=== PATIENT | female | born 1970 | race African-American/Black ===

== ENCOUNTER 2016-06-22 16:37 | Emergency (ER) | payer BC ==
[2016-06-22 16:47] VITALS: O2SAT 96
[2016-06-22 17:38] LABS: % IMMATURE GRANULYOCYTES 0.2 % (0.0-1.1); ABSOLUTE IMMATURE GRANULOCYTES 0.02 10^3/uL (0.00-0.10); ADD DIFF? NO; ADD MORPH? NO; ADD SCAN? NO; ATYPICAL LYMPHOCYTE FLAG 10 (0-99); FRAGMENT RBC FLAG 0 (0-99); HEMATOCRIT 38.6 % (38.0-47.0); HEMOGLOBIN 13.7 g/dL (12.6-16.3); LEFT SHIFT FLG 0 (0-99); LIPEMIA HEMOLYSIS FLAG 90 (0-99); MEAN CELL HEMOGLOBIN 32.7 pg (27.9-34.1); MEAN CELL HEMOGLOBIN CONCENTR. 35.5 g/dL (32.4-36.7); MEAN CELL VOLUME 92.1 fL (81.5-99.8); MEAN PLATELET VOLUME 9.7 fL (8.7-11.7); PLATELET CLUMPS FLAG 20 (0-99); PLATELET COUNT 279 10^3/uL (150-400); RED BLOOD CELL COUNT 4.19 10^6/uL (4.18-5.33); RED CELL DISTRIBUTION WIDTH 12.9 % (11.5-15.2)
--- NOTE | 2016-06-22 17:43 | EDPHY ---
H & P Time Seen by Provider: 06/22/16 17:15 HPI/ROS: HPI: 45-year-old female presents to emergency department with chief concern vaginal bleeding. Reports a gush of bright red blood with tissue 45 minutes prior to arrival. She is 9 weeks after I VF. Had a normal ultrasound 2 weeks ago. Denies fever, chills, dizziness, shortness of breath, chest pain, abdominal pain, cramping, nausea, vomiting, urinary symptoms, back or flank pain. No recent infections. No history of STI. Under the care of a Dr. Lincoln who is an IVF specialist in [place]. Has first appointment with [facility] [place] at [facility] on Thursday of this week. 3 para 0. ROS:10 point review of systems is negative other than as stated in HPI Social History: Smoking Status: Never smoked Physical Exam: Vital signs stable, reviewed by me General: Awake, alert, calm, cooperative. No acute distress. Head: Normalocephalic. Atraumatic. EENT: PERRLA. EOMI. No pallor or injection. Anicteric. No nystagmus. No injection. Neck: Supple, nontender. No lymphadenopathy. Full range of motion. No meningismus. Respiratory: Breathing unlabored. Breath sounds equal bilaterally and clear to auscultation. No adventitious sounds. CV: Chest nontender, atraumatic. Heart rate regular. No murmur, distal pulses 2+ bilaterally. Brisk cap refill all extremities. GI: Abdomen soft, nontender. Bowel sounds normoactive and positive x4 quadrants. : No suprapubic tenderness. No CVA or flank tenderness. Pelvic exam: Normal external exam. Dark blood in vaginal vault. Cervix is closed. Neuro: Alert. Oriented x 3. Speech clear. Nonfocal cranial nerves throughout. Sensation intact all extremities. Skin: Skin warm, dry, intact. No rashes, abrasions, or lacerations. Skin turgor normal. Extremities: Full range of motion in all 4 extremities. Strength 5+ all extremities. Constitutional: Initial Vital Signs Temperature (C) 36.9 C 06/22/16 16:45 Heart Rate 96 06/22/16 16:45 Respiratory Rate 17 06/22/16 16:45 Blood Pressure 142/94 H 06/22/16 16:45 O2 Sat (%) 96 02/05/17 16:45 O2 Delivery Mode Room Air Allergies/Adverse Reactions: No Known Allergies Allergy (Verified 06/22/16 16:44) Home Medications: Medication Instructions Recorded Estrogens, Conjugated 06/22/16 Progesterone 06/22/16 Medical Decision Making - Diagnostics Imaging: Obstetrical Ultrasound 1st Trimester, <14 weeks Clinical Indications: Vaginal bleeding. IVF. Intrauterine . Findings: A single viable intrauterine fetus is identified. LMP: April 20, 2016. Gestational Age by LMP: 9 weeks 0 days FILIBERTO by LMP: January 25, 2017 CRL: 21.92 mm Gestational Age by CRL: 8 weeks 6 days FILIBERTO by CRL: January 26, 2017 FHR = 157 beats per minute. A second left-sided empty gestational sac noted. No subchorionic hemorrhage. Cervix appears closed. Right ovary 2.7 x 2 x 1.8 cm Left ovary 4.4 x 2.3 x 2.1 cm Doppler/duplex flow to both ovaries without torsion. Left corpus luteum cyst measuring 1.2 x 1.2 x 1 cm. Uterus measures 8.4 x 6.3 x 7.6 cm. Impression: 1. Single viable intrauterine gestation with size consistent with IVF dates. 2. FHR = 157 BPM. 3. Recommend followup anatomy scan between 19 and 20 weeks gestation. 4. A second empty gestational sac noted. 5. No subchorionic hemorrhage. Findings and recommendations discussed with Emergency Department physician, FRANNY HernandezC at 1820 hour, today. Final report concurs with initial preliminary interpretation. Dictated By: Hair Chen ED Course/Re-evaluation: 45-year-old female presents to emergency department with bleeding during first -trimester. She is afebrile. She has no abdominal pain or Pelvic cramping. Ultrasound shows a normal intrauterine , heart rate 157. No evidence of subchorionic hemorrhage. Cervix is closed. Urinalysis is negative for evidence of infection. H&H is stable. Patient is A positive. She has been counseled regarding threatened miscarriage. She has follow up with her OB at [facility] [place] [facility] on Thursday. they are comfortable with this plan. They have been counseled and encouraged to return should symptoms worsen. Differential Diagnosis: Differential diagnosis includes but is not limited to threatened miscarriage, complete miscarriage, placenta previa, ectopic , UTI, vaginitis, normal first semester bleeding - Data Points Laboratory Results: Laboratory Results 06/22/16 17:25 06/22/16 17:25 06/22/16 06/22/16 17:35 17:25 WBC 8.86 10^3/uL (3.80-9.50) RBC 4.19 10^6/uL (4.18-5.33) Hgb 13.7 g/dL (12.6-16.3) Hct 38.6 % (38.0-47.0) MCV 92.1 fL (81.5-99.8) MCH 32.7 pg (27.9-34.1) MCHC 35.5 g/dL (32.4-36.7) RDW 12.9 % (11.5-15.2) Plt Count 279 10^3/uL (150-400) MPV 9.7 fL (8.7-11.7) Neut % (Auto) 65.7 % (39.3-74.2) Lymph % (Auto) 23.7 % (15.0-45.0) Alexander % (Auto) 7.9 % (4.5-13.0) Eos % (Auto) 1.8 % (0.6-7.6) Baso % (Auto) 0.7 % (0.3-1.7) Nucleat RBC Rel Count 0.0 % (0.0-0.2) Absolute Neuts (auto) 5.82 10^3/uL (1.70-6.50) Absolute Lymphs (auto) 2.10 10^3/uL (1.00-3.00) Absolute Monos (auto) 0.70 10^3/uL (0.30-0.80) Absolute Eos (auto) 0.16 10^3/uL (0.03-0.40) Absolute Basos (auto) 0.06 10^3/uL (0.02-0.10) Absolute Nucleated RBC 0.00 10^3/uL (0-0.01) Immature Gran % 0.2 % (0.0-1.1) Immature Gran # 0.02 10^3/uL (0.00-0.10) Sodium 136 mEq/L (134-144) Potassium 4.2 mEq/L (3.5-5.2) Chloride 105 mEq/L (97-110) Carbon Dioxide 21 L mEq/l (22-31) Anion Gap 10 mEq/L (8-16) BUN 9 mg/dL (7-23) Creatinine 0.7 mg/dL (0.6-1.0) Estimated GFR > 60 Glucose 105 H mg/dL (70-100) Calcium 9.5 mg/dL (8.5-10.4) Beta HCG, Quant 412458.00 H mIU/mL (0-4.83) Urine Color YELLOW Urine Appearance CLEAR Urine pH 5.0 (5.0-7.5) Ur Specific [place] 1.023 (1.002-1.030) Urine Protein NEGATIVE (NEGATIVE) Urine Ketones NEGATIVE (NEGATIVE) Urine Blood 3+ H (NEGATIVE) Urine Nitrate NEGATIVE (NEGATIVE) Urine Bilirubin NEGATIVE (NEGATIVE) Urine Urobilinogen NEGATIVE EU (0.2-1.0) Ur Leukocyte Esterase NEGATIVE (NEGATIVE) Urine RBC 1-3 /hpf (0-3) Urine WBC NONE SEEN /hpf (0-3) Ur Epithelial Cells NONE SEEN /lpf (NONE-1+) Urine Mucus TRACE /lpf (NONE-1+) Urine Glucose 1+ H (NEGATIVE) Patient ABO/Rh A POSITIVE Departure - Departure Disposition: Home, Routine, Self-Care Clinical Impression: Bleeding in early Condition: Good Instructions: Threatened Miscarriage (ED) Additional Instructions: Plan: Follow up with your music teacher as planned at [facility] on Thursday Rest For worsening symptoms return for recheck Referrals: IN STATE,. [Primary Care Provider] - As per Instructions
[2016-06-22 17:50] LABS: COLOR YELLOW; LEUKOCYTE ESTERASE,URINE NEGATIVE (NEGATIVE); NITRITE,URINE NEGATIVE (NEGATIVE)
[2016-06-22 17:56] LABS: MUCUS TRACE /lpf (NONE-1+)
[2016-06-22 17:57] LABS: WBC,URINE NONE SEEN /hpf (0-3)
[2016-06-22 18:07] LABS: ANION GAP 10 mEq/L (8-16); CALCIUM 9.5 mg/dL (8.5-10.4); CARBON DIOXIDE 21 mEq/l (22-31); CHLORIDE 105 mEq/L (97-110); CREATININE 0.7 mg/dL (0.6-1.0); GLOMERULAR FILTRATION RATE > 60; GLUCOSE 105 mg/dL (70-100); POTASSIUM 4.2 mEq/L (3.5-5.2); SODIUM 136 mEq/L (134-144)
--- NOTE | 2016-06-22 18:32 | US ---
Obstetrical Ultrasound 1st Trimester, <14 weeks Clinical Indications: Vaginal bleeding. IVF. Intrauterine . Findings: A single viable intrauterine fetus is identified. LMP: April 20, 2016. Gestational Age by LMP: 9 weeks 0 days FILIBERTO by LMP: January 25, 2017 CRL: 21.92 mm Gestational Age by CRL: 8 weeks 6 days FILIBERTO by CRL: January 26, 2017 FHR = 157 beats per minute. A second left-sided empty gestational sac noted. No subchorionic hemorrhage. Cervix appears closed. Right ovary 2.7 x 2 x 1.8 cm Left ovary 4.4 x 2.3 x 2.1 cm Doppler/duplex flow to both ovaries without torsion. Left corpus luteum cyst measuring 1.2 x 1.2 x 1 cm. Uterus measures 8.4 x 6.3 x 7.6 cm. Impression: 1. Single viable intrauterine gestation with size consistent with IVF dates. 2. FHR = 157 BPM. 3. Recommend followup anatomy scan between 19 and 20 weeks gestation. 4. A second empty gestational sac noted. 5. No subchorionic hemorrhage. Findings and recommendations discussed with Emergency Department physician, Ariella Hodgson RN PA-C at 1 820 hour, today. Final report concurs with initial preliminary interpretation.
[2016-06-22 18:58] VITALS: BP 115/68; PULSE 81; RESP 14; TEMP 97.3
== END 2016-06-22 19:01 | disposition home or self-care (01) ==
DX: O20.8 Other hemorrhage in early pregnancy (principal); Z3A.09 9 weeks gestation of pregnancy

== ENCOUNTER 2016-09-11 09:54 | Observation (INO) | payer BC ==
--- NOTE | 2016-09-11 10:11 | EDPHY ---
H & P Stated Complaint: vag bleed 3 weeks post miscarriage--had cytotec Time Seen by Provider: 09/11/16 10:09 HPI/ROS: CHIEF COMPLAINT: Uterine bleeding HISTORY OF PRESENT ILLNESS: The patient presents to the ED with heavy uterine bleeding that began at work. The patient's approximately 3 weeks status post vaginal delivery of a 18-week-old. The patient initially had no significant bleeding following her delivery. The patient developed uterine bleeding earlier in the week. She has had several appointments with her regular life science teacher who is performed serial pelvic ultrasounds with reportedly no history of retained products. The patient did have a repeat ultrasound done on Thursday of this week for recurrent uterine bleeding. At that point time there is no evidence of products of conceptions. The patient states that her endometrium was irrigated with saline by her regular OBGYN. She also received a dose of Cytotec. Today at work she plastic a large clot, soak several pads and continues to have ongoing bright red blood. REVIEW OF SYSTEMS: A comprehensive 10 point review of systems is otherwise negative aside from elements mentioned in the history of present illness. Source: Patient Exam Limitations: No limitations - Personal History LMP (Females 10-55): Unknown Current Tetanus/Diphtheria Vaccine: Unsure Current Tetanus Diphtheria and Acellular Pertussis (TDAP): Unsure - Medical/Surgical History Hx Asthma: No Hx Chronic Respiratory Disease: No Hx Diabetes: No Hx Cardiac Disease: No Hx Renal Disease: No Hx Cirrhosis: No Hx Alcoholism: No Hx HIV/AIDS: No Hx Splenectomy or Spleen Trauma: No Other PMH: 2 fibroid removal procedures - Social History Smoking Status: Never smoked - Physical Exam Exam: General Appearance: Alert, no distress Eyes: Pupils equal and round no pallor or injection ENT, Mouth: Mucous membranes moist Respiratory: There are no retractions, lungs are clear to auscultation Cardiovascular: Regular rate and rhythm Gastrointestinal: Minimal suprapubic tenderness Neurological: A&O, normal motor function, normal sensory exam, normal cranial nerves Skin: Warm and dry, no rashes Musculoskeletal: Neck is supple nontender Extremities: symmetrical, full range of motion Constitutional: Initial Vital Signs Temperature (C) 36.4 C 09/11/16 10:06 Heart Rate 76 09/11/16 10:06 Respiratory Rate 16 09/11/16 10:06 Blood Pressure 103/61 09/11/16 10:06 O2 Sat (%) 95 09/11/16 10:06 O2 Delivery Mode Room Air Allergies/Adverse Reactions: erythromycin base Allergy (Verified 09/11/16 10:06) Home Medications: Medication Instructions Recorded Estrogens, Conjugated 06/22/16 Progesterone 06/22/16 Medical Decision Making - Diagnostics Imaging Results: Imaging Impressions Pelvic/Renal Ultrasound 09/11/16 10:03 Impression: 1. Suspect retained products of conception in the fundal portion of the endometrial canal, with hematoma in the lower portions of the uterine canal. 2. Trace of free fluid in the pelvis. I discussed results with the patient's life science teacher at 1152 hours. ED Course/Re-evaluation: I reviewed the patient's past medical records including her records from her delivery at [facility]. I spoke with her regular second grade teacher who recommended the patient be evaluated by our on-call second grade teacher for possible D and C. I spoke with Dr Villanueva who is on-call for OBGYN. She evaluated the patient in the ED. She is currently hemodynamically stable however continues to have ongoing uterine bleeding. The patient will be taken for D and C. The patient did undergo pelvic ultrasound which demonstrates changes consistent with retained products of conception. Differential Diagnosis: Differential diagnosis considered includes retained products of conception, hemorrhagic shock, critical anemia, bleeding fibroid - Data Points Laboratory Results: Laboratory Results 09/11/16 10:00 09/11/16 09/11/16 09/11/16 10:00 10:00 10:00 WBC RBC Hgb Hct MCV MCH MCHC RDW Plt Count MPV Neut % (Auto) Lymph % (Auto) Wood % (Auto) Eos % (Auto) Baso % (Auto) Nucleat RBC Rel Count Absolute Neuts (auto) Absolute Lymphs (auto) Absolute Monos (auto) Absolute Eos (auto) Absolute Basos (auto) Absolute Nucleated RBC Immature Gran % Immature Gran # PT 14.3 SEC SEC (12.0-15.0) INR 1.12 (0.83-1.16) APTT 29.1 SEC SEC (23.0-38.0) Beta HCG, Quant 236.12 mIU/mL H mIU/mL (0-4.83) Patient ABO/Rh A POSITIVE Antibody Screen NEGATIVE 09/11/16 10:00 WBC 5.85 10^3/uL 10^3/uL (3.80-9.50) RBC 3.26 10^6/uL L 10^6/uL (4.18-5.33) Hgb 10.4 g/dL L g/dL (12.6-16.3) Hct 30.5 % L % (38.0-47.0) MCV 93.6 fL fL (81.5-99.8) MCH 31.9 pg pg (27.9-34.1) MCHC 34.1 g/dL g/dL (32.4-36.7) RDW 12.8 % % (11.5-15.2) Plt Count 291 10^3/uL 10^3/uL (150-400) MPV 9.3 fL fL (8.7-11.7) Neut % (Auto) 57.8 % % (39.3-74.2) Lymph % (Auto) 28.0 % % (15.0-45.0) Wood % (Auto) 11.8 % % (4.5-13.0) Eos % (Auto) 1.4 % % (0.6-7.6) Baso % (Auto) 0.7 % % (0.3-1.7) Nucleat RBC Rel Count 0.0 % % (0.0-0.2) Absolute Neuts (auto) 3.38 10^3/uL 10^3/uL (1.70-6.50) Absolute Lymphs (auto) 1.64 10^3/uL 10^3/uL (1.00-3.00) Absolute Monos (auto) 0.69 10^3/uL 10^3/uL (0.30-0.80) Absolute Eos (auto) 0.08 10^3/uL 10^3/uL (0.03-0.40) Absolute Basos (auto) 0.04 10^3/uL 10^3/uL (0.02-0.10) Absolute Nucleated RBC 0.00 10^3/uL 10^3/uL (0-0.01) Immature Gran % 0.3 % % (0.0-1.1) Immature Gran # 0.02 10^3/uL 10^3/uL (0.00-0.10) PT INR APTT Beta HCG, Quant Patient ABO/Rh Antibody Screen Medications Given: Discontinued Medications Methylergonovine Maleate (Methergine) 0.2 mg IM EDNOW ONE Stop: 09/11/16 10:26 Last Admin: 09/11/16 10:32 Dose: 0.2 mg Ondansetron HCl (Zofran) 4 mg IVP EDNOW ONE Stop: 09/11/16 10:27 Last Admin: 09/11/16 10:32 Dose: 4 mg Departure - Departure Disposition: To OP Cath/Surgery Clinical Impression: Retained products of conception, Uterine bleeding Condition: Fair Referrals: Patient,NotPresent [Unknown] - As per Instructions
[2016-09-11] MEDS ORDERED: ONDANSETRON 4 MG/2 ML VIAL ONE (10:12)
[2016-09-11 10:16] LABS: % IMMATURE GRANULYOCYTES 0.3 % (0.0-1.1); ABSOLUTE IMMATURE GRANULOCYTES 0.02 10^3/uL (0.00-0.10); ADD DIFF? NO; ADD MORPH? NO; ADD SCAN? NO; ATYPICAL LYMPHOCYTE FLAG 50 (0-99); FRAGMENT RBC FLAG 0 (0-99); HEMATOCRIT 30.5 % (38.0-47.0); HEMOGLOBIN 10.4 g/dL (12.6-16.3); LEFT SHIFT FLG 10 (0-99); LIPEMIA HEMOLYSIS FLAG 90 (0-99); MEAN CELL HEMOGLOBIN 31.9 pg (27.9-34.1); MEAN CELL HEMOGLOBIN CONCENTR. 34.1 g/dL (32.4-36.7); MEAN CELL VOLUME 93.6 fL (81.5-99.8); MEAN PLATELET VOLUME 9.3 fL (8.7-11.7); PLATELET CLUMPS FLAG 10 (0-99); PLATELET COUNT 291 10^3/uL (150-400); RED BLOOD CELL COUNT 3.26 10^6/uL (4.18-5.33); RED CELL DISTRIBUTION WIDTH 12.8 % (11.5-15.2)
[2016-09-11] MEDS ORDERED: METHYLERGONOVINE MAL 0.2 MG/ML INJ IM ONE (10:25)
[2016-09-11] MEDS ORDERED: ONDANSETRON 4 MG/2 ML VIAL IVP ONE (10:26)
[2016-09-11 10:48] LABS: INR 1.12 (0.83-1.16); PROTIME(PATIENT) 14.3 SEC (12.0-15.0)
[2016-09-11 10:49] LABS: APTT 29.1 SEC (23.0-38.0)
[2016-09-11 12:24] VITALS: RESP 16
[2016-09-11] MEDS ORDERED: fentaNYL 100 MCG/2 ML INJ ONE ×2 (12:45→13:19)
[2016-09-11] MEDS ORDERED: PROPOFOL/EMULSION 500 MG/50 ML BOTTLE IV ONE (12:45)
[2016-09-11] MEDS ORDERED: LIDOCAINE 2% 5 ML SDV ONE (12:47)
[2016-09-11] MEDS ORDERED: MIDAZOLAM 2 MG/2 ML VIAL ONE (12:47)
[2016-09-11] MEDS ORDERED: SCOPOLAMINE HYDROBROMIDE 1.5 MG PATCH TD ONE (12:47)
[2016-09-11] MEDS ORDERED: DEXAMETHASONE 4 MG/ML VIAL ONE (12:49)
[2016-09-11] MEDS ORDERED: ceFAZolin 1 GM VIAL ONE ×2 (13:14)
[2016-09-11] MEDS ORDERED: MISOPROSTOL 200 MCG TAB ONE (13:25)
[2016-09-11] MEDS ORDERED: METHYLERGONOVINE MAL 0.2 MG/ML INJ ONE (13:26)
--- NOTE | 2016-09-11 13:33 | GHP ---
[f rep st] HISTORY AND PHYSICAL DATE OF ADMISSION: 09/11/2016 ADMITTING DIAGNOSES: 1. Vaginal bleeding 3 weeks post-vaginal delivery of 18-week fetus. 2. Retained placenta. HISTORY OF PRESENT ILLNESS: Patient is a 45-year-old, 4, para 0-0-4-0 who presents to the emergency room with complaints of heavy vaginal bleeding that began at work this morning. Patient states she is status post a vaginal delivery of an 18-week fetus 3 weeks tomorrow. Patient initially had no significant bleeding following her delivery, states there were no complications of delivery of baby or placenta. The patient did develop some bleeding 3 days ago and was seen by her regular correspondence renew clerk at [facility], who did perform a pelvic ultrasound, as well as a sonohysterogram and was told there was no retained products and likely just fibroids. Patient was given both an injection of Methergine, as well as Cytotec, to help with the bleeding. The patient then states she had no bleeding for the last 2 days and this morning had very heavy bleeding with large clots. It was just gushing, the blood went through her jeans. States there was very little cramping. Denies any fevers or chills today, and no dysuria. She is soaking several pads and continues to have ongoing bright red blood here in the emergency room. Patient did feel lightheaded and dizzy, but feels better now as she had received a L of fluids. PAST OBSTETRICAL HISTORY: Three miscarriages under 12 weeks not requiring a D and C. Spontaneous vaginal delivery of an 18- week fetus; painless dilation. This was an IVF . GYNECOLOGICAL HISTORY: She denies any abnormal Pap smears or any sexually transmitted diseases. Cycles are regular and are light. MEDICAL HISTORY: Infertility. SURGICAL HISTORY: Laparoscopic myomectomy. SOCIAL HISTORY: Patient is . Lives with her . Denies any alcohol, tobacco, or illicit drug use. FAMILY HISTORY: Noncontributory. MEDICATIONS: None. ALLERGIES: Erythromycin. LABORATORY DATA: White count 5.85, H and H 10.4 and 30.5, platelets are 291. Beta quant is 236.12. Coags are normal. Patient is A positive, antibody screen negative. STUDIES: Pelvic ultrasound shows a uterus measuring 9 x 5 x 6 cm. Endometrial stripe is poorly defined, distended to about 1.6 cm diameter by mildly hypoechoic echoes compatible with blood. However, in the fundus uterine canal, a group of bright echo measures 1.8 cm in length and 1.2 cm across and are suspicious for retained placenta. Trace fluid in the cul-de-sac. Anterior mural fibroid measures 1 x 1 x 1.6 cm and ovaries are normal-appearing bilaterally. PHYSICAL EXAMINATION: VITAL SIGNS: On admission, stable. Patient is afebrile with a Temperature 36.4, heart rate 76, respirations 16, blood pressure 103/61, 95% sats. GENERAL: Alert, oriented x3. No apparent distress. CARDIOVASCULAR : Regular rate and rhythm. LUNGS: Clear to auscultation. ABDOMEN: Soft, nondistended, nontender. PELVIC: On speculum exam, there is active bleeding. Bright red blood noted coming from the os and lots of clots in vault. Cervix is dilated to about 1 cm. EXTREMITIES: Normal to inspection without edema or calf tenderness. ASSESSMENT: Patient is a 45-year-old, 4, para 0-0-4-0 with heavy vaginal bleeding, status post spontaneous vaginal delivery, day #20 with retained placenta. PLAN: 1. Discussed with patient and her that with her heavy vaginal bleeding and ultrasound findings, highly suspicious for retained placenta. 2. Discussed treatment options: continue to observe with continued bleeding, risk of infection versus surgical treatment with suction D and C. 3. Patient wants to proceed with surgery at this time. 4. Surgical consents were obtained. Risks, benefits, alternatives were reviewed with the patient including, but not limited to, bleeding, infection, and risk of uterine perforation. Consents were signed. Patient does understand all risks and wants to proceed with surgery. 5. I discussed performing the procedure under ultrasound and using the suction curette only because of their fear of scar tissue from D&C and future . And if I feel like all tissue is removed, then avoiding the sharp curettage. 6. Patient is hemodynamically stable at this time, but does continue to have ongoing bleeding and will do the surgery urgently. 7. Patient is Rh positive and does not need any RhoGAM at this time. 8. Antibiotics air conditioning specialist to the OR. 9. SCDs for DVT prophylaxis. /[id number]/MODL MTDD
[2016-09-11] MEDS ORDERED: ALBUMIN 5% 500 ML BOTTLE IV ONE (13:41)
[2016-09-11] MEDS ORDERED: PROPOFOL 200 MG/20 ML VIAL ONE (13:58)
[2016-09-11 14:06] LABS: PLATELET COUNT 232 10^3/uL (150-400)
[2016-09-11 14:07] LABS: % IMMATURE GRANULYOCYTES 0.7 % (0.0-1.1); ABSOLUTE IMMATURE GRANULOCYTES 0.04 10^3/uL (0.00-0.10); ADD DIFF? NO; ADD MORPH? NO; ADD SCAN? NO; ATYPICAL LYMPHOCYTE FLAG 0 (0-99); FRAGMENT RBC FLAG 0 (0-99); HEMATOCRIT 23.7 % (38.0-47.0); LEFT SHIFT FLG 10 (0-99); LIPEMIA HEMOLYSIS FLAG 90 (0-99); MEAN CELL HEMOGLOBIN 31.9 pg (27.9-34.1); MEAN CELL HEMOGLOBIN CONCENTR. 33.8 g/dL (32.4-36.7); MEAN CELL VOLUME 94.4 fL (81.5-99.8); MEAN PLATELET VOLUME 9.5 fL (8.7-11.7); PLATELET CLUMPS FLAG 0 (0-99); PLATELET COUNT 249 10^3/uL (150-400); RED BLOOD CELL COUNT 2.51 10^6/uL (4.18-5.33); RED CELL DISTRIBUTION WIDTH 12.8 % (11.5-15.2)
[2016-09-11] MEDS ORDERED: PHENYLEPHRINE HCL 100 MCG/ML SYR ONE ×2 (14:08)
[2016-09-11 14:18] LABS: INR 1.19 (0.83-1.16); PROTIME(PATIENT) 15.1 SEC (12.0-15.0)
[2016-09-11 14:19] LABS: APTT 31.4 SEC (23.0-38.0); FIBRINOGEN 293 mg/dL (214-456)
[2016-09-11] MEDS ORDERED: AMMONIA AROMATIC 1 EACH AMP IH ONE (16:16)
[2016-09-11] MEDS ORDERED: HYDROCODONE/APAP 5/325 TAB PO PRN (16:56)
[2016-09-11] MEDS ORDERED: IBUPROFEN 600 MG TAB PO PRN (16:56)
[2016-09-11] MEDS ORDERED: LR 1,000 ML IV SCH (17:00)
[2016-09-11] MEDS ORDERED: DIAZEPAM 10 MG TAB PO ONE (17:01)
--- NOTE | 2016-09-11 19:34 | GOP ---
[f rep st] OPERATIVE REPORT DATE OF OPERATION: 09/11/2016 SURGEON: Natalia Villanueva DO TELE TECH: Stephanie Rosario MD - intraoperatively ANESTHESIA: General endotracheal. ANESTHESIOLOGIST: Diego Quintana MD PREOPERATIVE DIAGNOSIS: Vaginal bleeding, 3 weeks post vaginal delivery of 18- week fetus, with retained placenta. POSTOPERATIVE DIAGNOSIS: Vaginal bleeding, 3 weeks post vaginal delivery of 18- week fetus, with retained placenta. PROCEDURE PERFORMED: Suction dilation and curettage under ultrasound guidance. FINDINGS: There was bright red active bleeding noted with blood clots in the vault. The cervix was dilated to 1 cm. The uterus was enlarged and sounded gently to 10 cm. A curved 9 mm suction curette was used. There appeared to be a hypoechoic area in the uterine fundus with moderate products of conception obtained. All specimens sent to pathology. SPECIMENS: Retained placenta. ESTIMATED BLOOD LOSS: 1 L. IVFs: 2500 cc INDICATIONS: This patient is a 45-year-old 4, para 0-0-4-0, who presented to the emergency room with complaints of heavy vaginal bleeding that began at work this morning. She states she is status post vaginal delivery of an 18-week fetus just about 3 weeks ago. The patient initially had no significant bleeding following delivery. States there were no complications of the delivery or the placenta. The patient did develop some bleeding 3 days ago and was seen by her regular upper trimmer at [facility] who did perform a pelvic ultrasound. She was told there were no retained products and was given an injection of Methergine as well as Cytotec to help with the bleeding. The patient states she had no bleeding for the last 2 days and this morning at work had very heavy bleeding with large clots. It was gushing and the blood went through her jeans. She states there was little cramping. Denies any fevers or chills today. No dysuria. She is soaking several pads and continues to have ongoing bright red bleeding here in the emergency room. The patient did feel lightheaded and dizzy, but feels better now that she received a liter of fluid. The patient is hemodynamically stable at this time, but is having continued heavy bleeding on exam. The ultrasound in the emergency room does show a uterus measuring 9 x 5 x 6 cm. The endometrial stripe is poorly defined and distended to 1.6 cm in diameter by mildly hypoechoic areas compatible blood. However, in the uterine fundus, there is an area of bright echodensity measuring 1.8 cm in length and 1.2 cm across which is suspicious for retained placenta. Trace fluid in the cul-de-sac. An anterior mural fibroid measures 1 x 1 cm. Ovaries are normal-appearing bilaterally. The patient was counseled at bedside for expectant management with continued bleeding and possible risk of infection versus surgical management with a suction D and C to evacuate the uterus of the retained placenta. The patient is concerned about scar tissue from the D and C and its effect on , but does want to proceed to surgery and have the D and C done at this time. DESCRIPTION OF PROCEDURE: The patient was taken to the operating room where anesthesia was obtained without difficulty. Prior to the procedure, the patient was fully counseled on the risks, benefits, indications, and options for the procedure, to which the patient agreed. The patient was placed supine on the operating room table. Anesthesia was obtained without difficulty. She was then placed in the dorsal supine position, and prepped and draped in the usual surgical fashion. She was given 2 g of Ancef prior to the procedure. A weighted speculum was placed in the vagina, and the cervix was grasped with a single-tooth tenaculum. The uterus was then sounded gently to 10 cm. The cervix was then serially dilated with Hanks dilators to a #9. A 9 mm curved suction curette was then introduced, and a suction curettage was performed. This was done under ultrasound guidance. It did appear that most of the hypoechoic area noted on ultrasound was removed by suction curette. There was noted to be active bleeding of bright red blood at this time. The patient was given Methergine IV as well as 800 mcg of Cytotec per rectum. There was still noted to be an hypoechoic area in the posterior fundus, and this was not able to be removed with a suction curette. At this time, a sharp curettage was performed until that area on the posterior fundus was cleared on ultrasound and until a gritty surface was appreciated on all four quadrants of uterus. The lower uterine segment of the uterus did appear boggy and after the uterotonics were given, the lower uterine segment became firm with resolution of the bleeding. We did turn our attention one last time to suction curette, and this was placed back inside the uterus to remove any remaining placenta. On ultrasound, the uterus did look clear of all products/placenta, with a thin endometrial stripe. The bladder at this time was emptied for 350 cc of clear urine via a red rubber. All instruments were then removed from the vagina. There was noted to be some oozing from the tenaculum site. Silver nitrate x2 was used. Hemostasis was noted. All sponge and instrument counts were correct x2. The patient tolerated the procedure well. No complications. The patient was then taken out of the dorsal lithotomy position, awakened, and sent to the recovery room in stable condition. /[id number]/MODL MTDD
[2016-09-11] MEDS ORDERED: ACETAMINOPHEN 325 MG TAB PO PRN (20:44)
[2016-09-11] MEDS: DOXYCYCLINE HYCLATE 100 MG CAP/TAB PO SCH (21:05)
[2016-09-11] MEDS: prednisoLONE ACET 1% 5 ML OPHT.BTL RTEYE SCH (21:05)
[2016-09-11 23:22] VITALS: TEMP 98.2
[2016-09-12] MEDS ORDERED: ZOLPIDEM TARTRATE 5 MG TAB PO ONE (00:30)
[2016-09-12 00:39] VITALS: PULSE 75
[2016-09-12 05:53] LABS: HEMATOCRIT 21.6 % (38.0-47.0); HEMOGLOBIN 7.3 g/dL (12.6-16.3)
[2016-09-12 08:27] VITALS: BP 97/55; O2SAT 96
[2016-09-12] MEDS: DOXYCYCLINE HYCLATE 100 MG CAP/TAB PO SCH (08:36)
[2016-09-12] MEDS: prednisoLONE ACET 1% 5 ML OPHT.BTL RTEYE SCH (08:38)
--- NOTE | 2016-09-12 21:55 | SOAPPROG ---
SOAP Progress Note Assessment/Plan: Assessment: pod# 1 s/p suction d and c anemia Plan: discharge instructions bleeding precautions doxycycline iron 09/12/16 21:51 Subjective: patient is doing well. having occasional light spotting. denies light headedness or dizzyness. long discussion with patient and her about surgery, retained placenta, anemia, followup, antibiotics Objective: Vital Signs Temp Pulse Resp BP Pulse Ox 36.8 C 75 16 97/55 L 96 09/12/16 08:00 09/12/16 08:00 09/12/16 08:00 09/12/16 08:00 09/12/16 08:00 Laboratory Results 09/12/16 05:45 09/11/16 09/12/16 09/13/16 05:59 05:59 05:59 Intake Total 2800 Output Total 1301 Balance 1499 PT 15.1 SEC (12.0-15.0) H 09/11/16 13:41 INR 1.19 (0.83-1.16) H 09/11/16 13:41 Physical Exam - Physical Exam General Appearance: WD/WN, alert, no apparent distress Respiratory: chest non-tender, lungs clear, normal breath sounds Cardiac/Chest: normal peripheral pulses, regular rate, rhythm Abdomen: normal bowel sounds, non-tender, soft, other (fundus firm and non tender) Skin: normal color, warm/dry Extremities: normal range of motion, non-tender, normal inspection, normal capillary refill Neuro/Psych: no motor/sensory deficits, alert, normal mood/affect, oriented x 3 ICD10 Worksheet Patient Problems: Problems Problem Status Onset Acute appendicitis Acute Retained products of conception Acute Uterine bleeding Acute
== END 2016-09-12 09:10 | disposition home or self-care (01) ==
LOC: EDUNIT# → FOBOP 12:22 → FLD 12:22
PROVIDERS: ADMIT Obstetrics & Gynecology; ATTEND Obstetrics & Gynecology
DX: O72.2 Delayed and secondary postpartum hemorrhage (principal)
CPT/HCPCS: 59160; 76856; 96372; 96374; 99285; G0378; J0690; J1100; J2210; J2250; J2370; J2405; J2704; J3010; P9041